=== PATIENT | male | born 1980 | race Caucasian/White ===

== ENCOUNTER 2017-10-25 20:39 | Emergency (ER) | payer OTHER ==
[~2017-10-25] VITALS: Ht 182.9 cm; Wt 95.7 kg
[~2017-10-25 20:39] MED LIST: AMOXICILLIN875 MG PO; MOTRIN600 MG PO; TRAMADOL HCL50 MG PO
[2017-10-25 22:48] LABS: HEMATOCRIT 34.3 % (38.0-50.0); HEMOGLOBIN 11.5 G/DL (12.5-16.6); MCHC 33.5 G/DL (30.0-36.0); MCV 86.4 FL (86-99); PLATELET COUNT 361 K/uL (156-360); RBC DIS.WIDTH-CV 12.4 % (11.8-14.6); RBC DIS.WIDTH-SD 39.2 % (39-53); RED BLOOD COUNT 3.97 M/uL (4.00-5.50); WHITE BLOOD COUNT 10.5 K/uL (4.1-10.2)
[2017-10-25 22:56] LABS: D-DIMER ELISA < 150.00 ng/mLDDU (<230)
[2017-10-25 22:59] LABS: CHLORIDE 103 mEq/L (99-109); POTASSIUM 5.5 mEq/L (3.7-5.4); SODIUM 134 mEq/L (136-147)
[2017-10-25 23:00] LABS: GLUCOSE 399 mg/dL (70-99)
[2017-10-25 23:04] LABS: CREATININE 1.8 mg/dL (0.6-1.3); GFR ESTIMATE (CALCULATED) 45 mL/min/ (58.99-99999)
[2017-10-25 23:05] LABS: UREA NITROGEN (BUN) 36 mg/dL (9-23)
[2017-10-25 23:07] LABS: CREATINE KINASE 112 IU/L (1-294)
[2017-10-25] MEDS ORDERED: ULTRACET1 TABLET PO (23:28)
[2017-10-25 23:58] VITALS: BP 145/100
== END 2017-10-26 00:01 | disposition home or self-care (01) ==
LOC: EME 20:39
PROVIDERS: Physician Assistant
DX: E11.40 Type 2 diabetes mellitus with diabetic neuropathy, unspecified (principal); E11.65 Type 2 diabetes mellitus with hyperglycemia; M79.605 Pain in left leg; N28.9 Disorder of kidney and ureter, unspecified
CPT/HCPCS: 80048; 82550; 85027; 85379; 99281; 99284